=== PATIENT | male | born 1965 | race Caucasian/White ===

== ENCOUNTER 2020-01-26 20:11 | Emergency (ER) | payer MEDICAID ==
[2020-01-26] MEDS ORDERED: KETOROLAC 30 MG/1 ML INJ IV ONE (20:30)
[2020-01-26] MEDS ORDERED: KETOROLAC 30 MG/1 ML INJ ONE (20:31)
--- NOTE | 2020-01-26 21:29 | Cat Scan Report ---
CT abdomen pelvis wo con INDICATION: abd pain w/ h/o renal stones. COMPARISON: None TECHNIQUE: Abdominal and pelvic CT exam performed. All CT scans at this location are performed using CT dose reduction for ALARA by means of automated exposure control. FINDINGS: CT ABDOMEN and PELVIS: Lung Bases: No significant abnormality. Liver: Hypoattenuation of the liver. Biliary: No significant abnormality. Spleen: No significant abnormality. Pancreas: No significant abnormality. Adrenals: No significant abnormality. Kidneys: 4 mm right proximal ureteral stone. Moderate hydronephrosis. There is significant perinephri c stranding. Simple appearing left small upper pole peripelvic cysts. Lymphatics: No lymphadenopathy. Vasculature: No significant abnormality. Bowel/Peritoneum: No significant abnormality. Pelvis: No significant abnormality. Osseous Structures: No aggressive osseous lesion. Bilateral L3 and L4 pars defects with 2 mm anteroli sthesis of L3 on L4 4 mm anterolisthesis of L4 on L5. Additional Findings: None IMPRESSION: 1. 4 mm right proximal ureteral stone with moderate hydronephrosis and significant perinephric strand ing. 2. Diffuse hepatic steatosis. 3. L3 and L4 spondylolysis with grade 1 listhesis of L3 on L4 and L4-L5. Signer Name: Flo Russo MD Signed: 01/26/2020 9:24 PM Workstation Name: [id number]
[2020-01-26 23:45] VITALS: BP 173/96
== END 2020-01-26 23:50 | disposition left against medical advice (07) ==
LOC: ED 20:11
DX: M54.5 Low back pain (principal); R10.9 Unspecified abdominal pain; Z53.21 Procedure and treatment not carried out due to patient leaving prior to being seen by health care provider
CPT/HCPCS: 74176; J1885